=== PATIENT | female | born 1945 | race Caucasian/White ===

== ENCOUNTER → 2022-12-18 | Outpatient (CLI) | payer MEDICARE, MEDICAID, SELFPAY ==
--- NOTE | 2022-12-18 13:29 | CDU_ITS ---
Reason For Study: carotid stenosis, S/P R CEA Rt. Velocities/BP Lt. Velocities/BP Prox CCA 111.3/5.8 cm/sec. Prox CCA 75.3/7.7 cm/sec. Mid CCA 86.1/5.8 cm/sec. Mid CCA 87.6/7.7 cm/sec. Dist CCA 78.4/9.1 cm/sec. Dist CCA 44.3/6.9 cm/sec. Prox ICA 50.7/9.0 cm/sec. Prox ICA 236.6/28.6 cm/sec. Mid ICA 92.4/15.1 cm/sec. Mid ICA 291.5/32.6 cm/sec. Dist ICA 87.8/12.8 cm/sec. Dist ICA 78.6/15.0 cm/sec. Rt. ICA/CCA = 1.1. Lt. ICA/CCA = 3.3. Prox ECA 99.8/5.3 cm/sec. Prox ECA 419.2/10.7 cm/sec. Rt. Vert. 63.0/12.6 cm/sec. Lt. Vert. 77.3/5.8 cm/sec. Right Extracranial There is heterogeneous, irregular atherosclerotic plaque noted in the right common carotid artery. There is intimal thickening but no significant atherosclerotic plaque noted in the right internal carotid artery. There is homogeneous, smooth atherosclerotic plaque noted in the right external carotid artery. Antegrade flow is noted in the right vertebral artery. Left Extracranial There is heterogeneous, irregular atherosclerotic plaque noted in the left common carotid artery. There is heterogeneous, irregular atherosclerotic plaque noted in the left internal carotid artery. There is heterogeneous, irregular atherosclerotic plaque noted in the left external carotid artery. Antegrade flow is noted in the left vertebral artery. Procedure Carotid Duplex [id number]. This is a Carotid Duplex examination using B-mode, color flow and specral Doppler. The exam was diagnostic. Exam performed in department. VL/Carotid Duplex Ultrasound Interpretation Summary Normal right extracranial internal carotid. Severe (>70%) stenosis left extracranial internal carotid. Patent and antegrade vertebrals bilaterally. Ordering Physician: Agustina Hendricks Performed By: Alireza Garcia RVT
== END | disposition home or self-care (01) ==
LOC: CVS 13:29
PROVIDERS: PCP Student in an Organized Health Care Education/Training Program; Referring Provider Physician Assistant; Visit Provider Physician Assistant
DX: I65.23 Occlusion and stenosis of bilateral carotid arteries (principal)
CPT/HCPCS: 93880

== ENCOUNTER 2023-01-09 08:22 | Inpatient (IN) | payer MEDICARE, MEDICAID, SELFPAY ==
[2023-01-09] VITALS (19 sets, daily range): BP systolic 82–143; BP diastolic 42–107; PULSE 62–76; RESP 12–21; TEMP 36.6–36.8; O2SAT 88–100; BMI 26.4; BMI 28.2
[2023-01-09] MEDS: Lactated Ringers 1,000 ML 15 ML IV (09:27)
[2023-01-09] MEDS: 0.9% Normal Saline 1,000 ML 1 ML IV (09:28)
[2023-01-09] MEDS: Vancomycin IV 1,000 MG/200 ML BAG 200 MG IV (09:28)
--- NOTE | 2023-01-09 10:30 | HP.PCM_ITS ---
History and Physical Allergies codeine Allergy (Severe, Verified 12/06/22 14:59) Nauseahydrocodone [From [place]] Allergy (Severe, Verified 12/06/22 14:59) Nauseavalsartan Adverse Reaction (Intermediate, Verified 12/06/22 14:59) vertigoPenicillins Adverse Reaction (Unknown, Verified 12/06/22 14:59) Chest tightnessaspirin Adverse Reaction (Verified 12/06/22 14:59) Bleeding Medications Calcium 600 mg PO BID 11/18/19 [History Confirmed 12/06/22] Vitamin D3 1 tab PO DAILY 11/18/19 [History Confirmed 12/06/22] amlodipine 5 mg tablet 5 mg PO DAILY 11/18/19 [History Confirmed 12/06/22] escitalopram oxalate 20 mg tablet 20 mg PO DAILY 11/18/19 [History Confirmed 12/06/22] omeprazole 20 mg capsule,delayed release 20 mg PO DAILY 11/18/19 [History Confirmed 12/06/22] irbesartan 300 mg-hydrochlorothiazide 12.5 mg tablet 1 ea PO DAILY 03/21/20 [History Confirmed 12/06/22] apixaban 5 mg tablet (Eliquis) 5 mg PO BID 12/06/22 [History Confirmed 12/06/22] atorvastatin 40 mg tablet (Lipitor) 40 mg PO QHS 12/06/22 [History Confirmed 12/06/22] clopidogrel 75 mg tablet 75 mg PO DAILY 12/06/22 [History Confirmed 12/06/22] metoprolol succinate 25 mg tablet,extended release 24 hr 25 mg PO BID 12/06/22 [History Confirmed 12/06/22] ropinirole 0.5 mg tablet 0.5 mg PO BID 12/06/22 [History Confirmed 12/06/22] PFSH Medical History? Acid reflux Anemia Anxiety CKD (chronic kidney disease) Essential tremor Heart murmur Hypertension Hyperthyroiditis Osteoporosis Pain disorder Peripheral vascular disease Thrombocytosis Vitamin D deficiency Surgical History? H/O angioplasty History of tonsillectomy Family History? Father CVA (cerebral vascular accident) Lung cancerMother Heart disease Hypertension Social History? Smoking Status:? Former smoker HPI HPI HPI: VISHNU BERMUDEZ, is a 77 F who presents to the office today for evaluation of carotid artery disease. Patient is accompanied by her . She actually presents today status post right carotid endarterectomy performed at [facility] on 11/09/2022.? She reports the procedure was performed by a Dr. Alicea.? She has not followed up with him postoperatively. On 11/01/2022, patient reports she awoke with right-sided facial drooping, dysarthria, confusion and she was transported to [facility] by squad and subsequently transferred to [facility].? She was determined to have significant carotid artery stenosis felt to be the cause of her stroke and thus carotid endarterectomy was performed once she was stable for surgery.? She states that they also told her the left carotid artery had significant stenosis around 85% and would require surgery within 6 weeks.? She also tells me that postoperatively she was found to have atrial fibrillation. She had no prior history of A-fib. We do not have any records or imaging available for review today. She does not want to continue to follow with vascular surgery at [facility] because the drive is simply too far.? She and her are both minimally ambulatory, she does not drive at all he can only tolerate driving short distances. She has been recovering well from the operation.? She has had minimal swelling at the incision site and minimal surrounding numbness.? She denies any unilateral severe headaches or fluctuations in her blood pressure.? She denies any stroke symptoms since the surgery.? She denies hoarse voice and tongue deviation.? She has been taking Eliquis and Plavix as prescribed following her surgery, stroke, new onset post-op A-fib.? Her stroke symptoms had mostly resolved within 1 to 2 days following her stroke, very minor right-sided facial drooping remains. She reports a history of GI bleeding which is why she was not started on aspirin.? She was taking statin prior to all of this for high cholesterol.? Otherwise, she reports her past medical history significant only for chronic kidney disease. ROS General General: Yes weight change, fatigue and weakness; No appetite, colon cancer or breast cancer HEENT HEENT: No difficulty swallowing, eye injury, eye surgery, swollen glands or hoarseness Endo Endocrine: No thyroid disease, diabetes mellitus, thyroid cancer, Hair loss, heat intolerance or cold intolerance Skin Skin: No rash or changing moles Musc Musculoskeletal: Yes back problems; No arthritis, rheumatoid arthritis, gout or joint pain Cardio Cardiovascular: Yes atrial fibrillation; No murmur, pacemaker, heart disease, high blood pressure, heart attack, heart stent, palpitations, shortness of breat with exertion or chest pain Psych Psychiatric: No depression, anxiety or hearing voices Resp Respiratory: No shortness of breath, No sleep apnea, No cough, No COPD, No asthma, No emphysema and No wheezing Gastro Gastrointestinal: No abdominal pain, No nausea or vomiting, Yes diarrhea, Yes constipation, No blood in stool, Yes acid reflux, No hemorrhoids, No ulcers, No gallbladder problem and No black,tarry stools Rom Hematologic: Yes blood thinners, No blood disorders, No bleeding, No anemia and No blood clots Neuro Neurologic: No system reviewed and no additional complaints, except as documented, No as per HPI, No abnormal gait, No abnormal hearing, No abnormal movements, No abnormal speech, No behavioral changes, No burning sensations, No confusion, No convulsions, No disequilibrium, No dizziness, No localized weakness, No frequent falls, No headache(s), No lack of coordination, No loss of vision, No memory loss, Yes numbness, No other visual disturbances, No radicular pain, No restless legs, No sensory deficit, No syncope, Yes tingling, No tremor(s), Yes weakness and No other Exam Const General: cooperative, healthy appearing, comfortable and no acute distress Orientation: alert, awake and oriented x3 [facility] Head: normal to inspection, normocephalic and atraumatic Ears: hearing grossly normal bilaterally and external ears normal Nose: external nose normal Eyes General: appearance normal, both eyes and all related structures EOM: EOM intact bilaterally Neck Neck: trachea midline Other: Right CEA incision with surgical glue intact.? Steri-Strips in place but peeling off.? Minimal swelling.? No ecchymosis, drainage, bleeding, erythema. Resp Effort & Inspection: normal respiratory effort, able to speak in complete sentences, symmetric chest movement, no audible wheezes, not labored, no respiratory distress, no stridor and no use of accessory muscles Auscultation: clear to auscultation bilaterally Cardio Rate: regular rate Rhythm: abnormal rhythm irregularly irregular Heart Sounds: murmur Bruits: carotid bruit on the left Pulses: brachial pulses present and radial pulses present Skin General: no rashes or lesions noted Wounds: no wounds Neuro General: patient alert, patient awake, patient oriented x3, moves all extremities, no focal motor deficits and CN's II-XI intact bilaterally Cognition: normal cognition Speech: speech normal Other: Slight right-sided drooping of the mouth. Psych Appearance: grossly normal Mental Status: mental status grossly normal Mood: congruent mood Affect: normal affect Speech and Movement: speech and movement normal Attitude: cooperative Thought Process: normal Thought Content: normal Judgment: judgment good Coding Level of Care Code Off vis,new,level 3 Diagnoses S/P carotid endarterectomy? Z98.890 Carotid stenosis with cerebral infarction less than 8 weeks ago? Assessment and Plan Assessment and Plan -left carotid stenosis -left CEA
[2023-01-09] MEDS: Heparin Injection (Vial) 5,000 UNIT/ML VIAL 5000 UNIT (10:51)
--- NOTE | 2023-01-09 11:15 | PLAQ_PTH ---
PATIENT: VISHNU BERMUDEZ LOC: ICU U#:[id number] AGE/SX: 77/F ROOM: [place] [address] RE01/09/[address]: Dr. Xavier Childers MD : 1945 BED: 1 DIS: 01/10/2023 SPEC #: [id number] RECD: 01/09/23 14:10 STATUS: THERON RELorenzo #: [id number] MARGRET: 01/09/23 11:[address]: Xavier Childers DEPT: SURGICAL PATHOLOGY RECD BY: Kamari Mckeon ENTERED: 01/10/23 07:47 SP TYPE: PLAQUE OTHR DR: Dr. Charlie Ruiz, Tissues: PLAQUE Procedures: Decalcification bone/plaque Surgery Specimen Level III HEADER OPERATION: Carotid endarterectomy PRE-OP DIAGNOSIS: Left carotid stenosis TISSUE SUBMITTED: Left carotid plaque MICROSCOPIC DIAGNOSIS Left carotid plaque, endarterectomy: Atherosclerotic tissue with focal calcifications (plaque). SJ:marisa 01/14/2023 GROSS DESCRIPTION Received in fixative is one container labeled with the patient's name and designated left carotid plaque. The specimen consists of an elongated fragment of yellow plaque-like material measuring 3.0 cm in length and 1.0 cm in diameter. The specimen cuts with a gritty sensation. The specimen is sectioned and totally submitted in one cassette after decalcification. / AM:marisa 01/10/2023 TC:5 CPT: 91915, 68175
[2023-01-09] MEDS: Bupivacaine 0.25% 30 ML Vial (13:25)
--- NOTE | 2023-01-09 13:28 | PCM.OPRPT ---
Report of Operation Date of Procedure: 01/09/23 Pre-Operative Diagnosis: left carotid stenosis Post-Operative Diagnosis: same Surgery/Procedure Performed:: left carotid endarterectomy Surgeon: Xavier Childers Type of Anesthesia: General Drains: 19 Fr LV Estimated Blood Loss (mL): 30 Description of Procedure: HPI: Patient is a 77-year-old female with symptomatic carotid artery stenosis bilaterally. She previously underwent a right carotid endarterectomy and she presents now for treatment of her left carotid artery stenosis. Description of procedure: Upon obtaining informed consent and verification correct patient procedure and site patient was taken to the operating where she was placed under general anesthesia. She was then positioned prepped and draped in usual sterile fashion a timeout was performed. Oblique incision was made along the anterior border sternocleidomastoid Bovie electrocautery was dissect down through subcutaneous tissue to the level of the platysma. The platysma was divided and self-retaining tractors put in position. Further dissection carried on the interval sternocleidomastoid was then retracted laterally exposing the carotid sheath. Sharp dissection was then used to dissect free the anterior border the internal jugular vein and the facial vein was ligated and divided allowing posterior lateral traction of the vein and exposing the proximal common carotid artery. Sharp dissection used to dissect free the proximal common carotid artery in the right and used to place a vessel loop with care taken to identify protect the vagus nerve. We then dissected free distally onto the internal carotid artery beyond the area of visible plaque and a right angle used to place a vessel loop with care taken to identify protect the hypoglossal and vagus nerves. Patient was in heparinized allowed to circulate for 3 minutes during which time sharp dissection used to dissect through the external carotid artery and a right angle used to place a vessel loop. ACT was performed and sequential heparin redosing guided by ACT results. The carotid vessels then occluded first the internal followed by the common and external and a longitudinal arteriotomy created with 11 blade on the distal common carotid artery and extended into the internal carotid artery with Fontana scissors. A 10 Dominican [place] shunt was then placed first distally in the internal carotid artery allowed to backbleed before placing in the common carotid artery. The shunt was interrogated Doppler from repeat low resistance signal. We then performed endarterectomy with a freer elevator with eversion endarterectomy of the external carotid artery and satisfactory endpoint onto the distal internal carotid artery beyond the plaque. The lumen was then flushed with heparinized saline to clear of any debris in the distal endpoint tacked with 7-0 Prolene interrupted sutures. A bovine pericardial fashion and brought in the field and secured in position using 6-0 Prolene in a running fashion. Prior to completing the suture line the shunt was removed and the vessels backbled. After completing the suture line the internal carotid artery allowed to backbleed and the bifurcation then reoccluded as origin. Clamps were then released from the external and common carotid artery allowing 10 heartbeats of antegrade flow into the external before reestablishing antegrade flow into the internal carotid artery. After clamps removed satisfactory hemostasis was noted and the vessels were interrogated with Doppler. The internal carotid arteries patent with low resistance signal in the external carotid artery was patent with appropriate signal. The patient was then reversed with protamine and the incision inspected for hemostasis. After satisfactory stasis was noted a 19 Dominican channel LV was placed via separate stab incision and the incision was closed with 2-0 Vicryl, 3-0 Vicryl, 4 Monocryl and Dermabond for the skin. At the inclusion the case patient was awakened anesthesia moving all extremities at which point she was transferred to the intensive care unit for close hemodynamic and neurologic monitoring.
[2023-01-09] MEDS: Nitro/D5w 25MG/250ML Bottle 25 MG (13:56)
[2023-01-09 15:35] LABS: ACT Activated Clotting Time 167 sec (74-137)
[2023-01-09 15:36] LABS: ACT Activated Clotting Time 227 sec (74-137)
[2023-01-09 15:37] LABS: ACT Activated Clotting Time 221 sec (74-137)
[2023-01-09] MEDS: 0.45% Normal Saline 1,000 ML 75 ML IV (16:07)
[2023-01-09] MEDS: Acetaminophen 500 MG Tablet 1000 MG PO ×2 (16:08→21:16)
[2023-01-09] MEDS: Pantoprazole Sodium 20 MG Tablet PO (16:08)
[2023-01-09] MEDS: Labetalol (Prefilled) 20 MG/4 ML 10 MG IV (16:38)
[2023-01-09] MEDS: levETIRAcetam 500 MG Tablet PO (21:17)
[2023-01-09] MEDS: Pramipexole Di-HCl 0.25 MG Tablet PO (21:17)
[2023-01-09] MEDS: Atorvastatin Calcium 40 MG Tablet PO (21:17)
[2023-01-10] VITALS (16 sets, daily range): BP systolic 87–132; BP diastolic 44–77; PULSE 57–78; RESP 12–19; TEMP 36.5–37; O2SAT 91–99; BMI 27.3
--- NOTE | 2023-01-10 00:40 | NURSING ---
0025: Pt bladder scanned for >1144ml after inability to void on BSC; explained straight cath procedure and pt agreed; straight cath per facility protocol for 1275ml, pt elijah well and stated I feel so much better.
[2023-01-10 04:24] LABS: Absolute Lymphocyte Count 1.65 X10^3/uL (0.83-4.51); Absolute Neutrophil Count 10.4 X10^3/uL (2.0-7.7); Basophil# 0.11 X10^3/uL; Basophil% 0.8 % (0-1); Eosinophils% 1.5 % (0-5); Hematocrit 31.8 % (37-47); Hemoglobin 9.7 g/dL (12.0-15.0); Lymphocyte # 1.65 X10^3/ul (0.83-4.51); Lymphocyte % 12.5 % (19-41); Mean Corp Hgb Conc 30.5 g/dL (32-36); Mean Corpuscular Hgb 26.6 pg (27.0-32.0); Mean Corpuscular Volume 87.4 fL (81-99); Mean Platelet Vol. 10.4 fl (6.2-12.0); Monocyte# 0.71 X10^3/uL; Monocyte% 5.4 % (0-10); NRBC Flagged by Analyzer 0 % (0-5); Neutrophil # 10.38 X10^3/uL (2.7-7.7); Neutrophil % 78.9 % (47-70); POSITIVE COUNT YES; Platelet Count 785 K/mm3 (150-450); RBC Distribution Width CV 19.3 % (11.6-14.6); Red Blood Count 3.64 M/mm3 (4.2-5.4); White Blood Count 13.2 K/mm3 (4.4-11.0)
[2023-01-10 04:26] LABS: Differential Indicated SCAN CRITERIA MET
[2023-01-10 04:37] LABS: Anisocytosis 2+; Platelet Estimate MKD INC (ADEQ)
[2023-01-10] MEDS: 0.9% Saline Lock 10 ML Syringe IV (05:36)
[2023-01-10] MEDS: Acetaminophen 500 MG Tablet 1000 MG PO ×2 (05:36→14:53)
[2023-01-10] MEDS: 0.45% Normal Saline 1,000 ML 75 ML IV (05:37)
[2023-01-10] MEDS: Clopidogrel Bisulfate 75 MG Tablet PO (09:41)
[2023-01-10] MEDS: Metoprolol(XL)Succ 25 MG Tablet PO (09:41)
[2023-01-10] MEDS: Pramipexole Di-HCl 0.25 MG Tablet PO (09:41)
[2023-01-10] MEDS: Escitalopram Oxalate 20 MG Tablet PO (09:42)
[2023-01-10] MEDS: oxyCODONE 5 MG Tablet PO (09:42)
[2023-01-10] MEDS: levETIRAcetam 500 MG Tablet PO (09:42)
[2023-01-10] MEDS: Enoxaparin 40 MG/0.4 ML Syringe SC (09:42)
--- NOTE | 2023-01-10 12:32 | PCM.PN.SRG ---
Subjective Subjective Doing well overnight, pain controlled, no numbness/weakness/vision loss/speech difficulty. Up to chair with minimal assist, tolerating diet. Objective Data Objective Data A&O x 3, NAD RRR Resp non labored CN intact Inc C/D/I Vital Signs: Vital Signs Temp Pulse Resp BP Pulse Ox O2 Del Method O2 Flow Rate 97.7 F L 72 19 H 118/54 L 92 Room Air 2 01/10/23 08:00 01/10/23 11:00 01/10/23 11:00 01/10/23 11:00 01/10/23 11:00 01/10/23 11:00 01/10/23 08:00 Oxygen Flow Rate (L/min) 2 Oxygen Delivery Method Room Air Weight: 160 lb 4.417 oz Body Mass Index (BMI) 27.3 Intake & Output: Intake and Output for Last 24 Hours 01/08/23 01/09/23 01/10/23 23:59 23:59 23:59 Intake Total 1167.25 / 1167.25 726.25 / 726.25 Output Total 1285 / 1285 Balance 1157.25 / 1157.25 -558.75 / -558.75 Lab / Micro Data Result Diagrams: 01/10/23 04:15 Labs: Laboratory Results - last 24 hr 01/09/23 11:31: Activated Clotting Time 167 H 01/09/23 11:59: Activated Clotting Time 227 H 01/09/23 12:38: Activated Clotting Time 221 H 01/10/23 04:15: WBC 13.2 H, RBC 3.64 L, Hgb 9.7 L, Hct 31.8 L, MCV 87.4, MCH 26.6 L, MCHC 30.5 L, RDW Std Deviation 60.0 H, RDW Coeff of Bharathi 19.3 H, Plt Count 785 H*, MPV 10.4, Immature Gran % (Auto) 0.900, Neut % (Auto) 78.9 H, Lymph % (Auto) 12.5 L, Mineral % (Auto) 5.4, Eos % (Auto) 1.5, Baso % (Auto) 0.8, Absolute Neuts (auto) 10.4 H, Absolute Lymphs (auto) 1.65, Nucleated RBC % 0, Diff Path Review May ramon, Platelet Estimate MKD INC, Anisocytosis 2+ Assessment & Plan Assessment/Plan (1) Carotid stenosis with cerebral infarction less than 8 weeks ago: PLAN: -neuro intact -ambulated in room without difficulty -will walk with nursing in DAYDAY vigil; was at home prior to surgery without concerns for daily functional status -if doing well ambulating DC this evening; if PT recommends facility based discharge then will arrange
--- NOTE | 2023-01-10 13:50 | CASEMGMT ---
RN?CM?STRAIGHTENER AND ALIGNER?CM?to room to meet with patient for initial transition planning/care coordination?assessment.?RN?CM?introduced self and role at [facility].? Pt voices understanding and consents to?assessment?at this time.? Pt sitting up in recliner chair in no distress at this time.? Pt is A/O at this time and answers all questions appropriately.?? Care providers, pharmacy, and demographics verified/updated at this time. PCP: Dr Ruiz Specialists: Dr Pedraza Preferred Pharmacy:[facility] Insurance: [facility] Prescription Benefit:?Yes Living Will/HPOA:?Pt does not currently have LW/HCPOA and declines info at this time.? LNOK: dtr and son--both live in [place]. Alireza/Lorne Living Arrangements: Lives w/Alireza in one-story apt w/no steps to enter. Pt states she is indep w/ADL's and IADL's and manages her own medications. Transportation:?Alireza DME: States has the following DME:?shower chair, RTS, grab bars, medical alert system. Pt states needs a walker. Verbally reviewed local DME companies and made aware [employer] is affiliated w/[facility]. Pt chooses [employer]. ?Pt states no need for further DME at this time.? HHC/SNF: Has been to [place] [facility] in the past and has had HHC in the past. Pt would like HHC again. A list of HHC providers including quality and resource use data and consistent with the patient?s preferred geographic region, medical needs, and insurance network were provided from the [facility] Guide. Pt states she would like [facility], as Alireza is currently getting HHC w/them. Pt wishes to return home and states has no concerns with going home at time of discharge.?CM?to follow for any further discharge planning/needs.? Pt voices no further concerns/needs at this time.? Advised pt to ask for?CM?if any further questions/concerns/needs arise.? Voices understanding. PLAN:??Home w/WW and HHC. Breann WHEELERN?RN?CM
--- NOTE | 2023-01-10 14:01 | CASEMGMT ---
Discharge Planning Patient Choice list for created and given to RN CM. Katia Novak
--- NOTE | 2023-01-10 14:18 | CASEMGMT ---
Discharge Planning HH referral sent to [facility] via [facility]. Katia Novak
[2023-01-10] MEDS: Pantoprazole Sodium 20 MG Tablet PO (14:54)
--- NOTE | 2023-01-10 15:24 | CASEMGMT ---
Addendum entered by Cheryl Romero 01/10/23 16:25: Referral for WW was sent to [facility] via [facility]. Addendum entered by Cheryl Romero 01/10/23 16:08: Pt made aware [facility] able to accept her. [facility] [place] walker to pt's room. Original Note: HENRIETTA RODRIGUEZ note: HENRIETTA RODRIGUEZ spoke w/Rafael @ [facility]. They are able to accept pt w/anticipated SOC tomorrow.
--- NOTE | 2023-01-10 16:25 | PCM.DC.SUM ---
Providers Date of Admission: 01/09/23 Date of Discharge: 01/10/23 Primary Care Physician: Dr. Charlie Ruiz DO Reason For Visit: LT CAROTID ENDARTERECTOMY Diagnosis Discharge Diagnosis (1) Carotid stenosis with cerebral infarction less than 8 weeks ago: Status: Acute Medications at Discharge Home Medications escitalopram oxalate 20 mg tablet 20 mg PO DAILY DEPRESSION 11/18/19 omeprazole 20 mg capsule,delayed release 20 mg PO 1600 GERD 11/18/19 apixaban 5 mg tablet (Eliquis) 5 mg PO BID BLOOD THINNER 12/06/22 atorvastatin 40 mg tablet (Lipitor) 40 mg PO DAILY CHOLESTEROL 12/06/22 clopidogrel 75 mg tablet 75 mg PO DAILY BLOOD THINNER 12/06/22 metoprolol succinate 25 mg tablet,extended release 24 hr 25 mg PO DAILY BP 12/06/22 ropinirole 0.5 mg tablet 0.5 mg PO BID RLS 12/06/22 levetiracetam 500 mg tablet 500 mg PO BID MOOD 01/07/23 oxycodone 5 mg tablet 5 mg PO Q8H PRN PRN Pain Score 4-10 3 days #9 tabs 01/10/23 Hospital Course Procedures - (Left carotid endarterectomy) Summary of Care Provided Hospital Course: Patient underwent L carotid endarterectomy on 01/09/2023. The surgery was without complication and she tolerated it well. The L skin incision site was closed with glue. A LV drain was placed at the conclusion of surgery to reduce risk of hematoma. On POD #1 output from the drain was diminishing appropriately and it was removed without issue. After procedure, patient was routinely admitted to ICU for hemodynamic and neurologic monitoring. She has remained hemodynamically stable, has not required PRNs today. She has remained neurologically stable without sign/symptom of stroke or reperfusion syndrome. She initially had some difficulty voiding but was able to void today. She has tolerated progression to full diet. Her pain is well controlled. At the end of October, patient had been hospitalized with stroke at [place] and subsequently underwent R CEA. Following all of this, she has felt a bit weaker. PT/OT evaluated her during her stay and felt she was appropriate for discharge home with a walker and HHC. The patient was agreeable to this and felt comfortable discharging to her home where she also lives with her . Patient is medically stable for discharge, HHC has been arranged, and she has close outpatient follow-up in place. Physical Exam Const oriented x3 and no apparent distress Resp normal respiratory effort Cardio regular rate and regular rhythm Extremity no clubbing, cyanosis or edema Skin Skin Narrative: Left neck incision site with surgical glue intact, skin edges well approximated, no significant swelling/ecchymosis/redness/drainage. Small bandage overlying where the drain was removed. Weight / BMI Weight Weight: 160 lb 4.417 oz Body Mass Index (BMI) 27.3 ABG / Lab / Microbiology Data Result Diagrams: 01/10/23 04:15 Laboratory: Laboratory Results - last 24 hr 01/10/23 04:15: WBC 13.2 H, RBC 3.64 L, Hgb 9.7 L, Hct 31.8 L, MCV 87.4, MCH 26.6 L, MCHC 30.5 L, RDW Std Deviation 60.0 H, RDW Coeff of Bharathi 19.3 H, Plt Count 785 H*, MPV 10.4, Immature Gran % (Auto) 0.900, Neut % (Auto) 78.9 H, Lymph % (Auto) 12.5 L, Caroline % (Auto) 5.4, Eos % (Auto) 1.5, Baso % (Auto) 0.8, Absolute Neuts (auto) 10.4 H, Absolute Lymphs (auto) 1.65, Nucleated RBC % 0, Diff Path Review May foll, Platelet Estimate MKD INC, Anisocytosis 2+ D/C Instructions Discharge Diet: No restrictions May shower in (days): 1 Weight Bearing Status: Weight bearing as tolerated Lifting Restricted to (Lbs): 20 Lifting Restrictions: Do not lift greater than 20 pounds for 3 weeks. Call your doctor if your incision/area has: Sudden Increased Bleeding, Increased Pain/ Swelling and Foul Smelling Discharge Call your doctor if you observe: Fever of 101 or Higher and Uncontrolled pain Remove Dressing in: 1 day Additional Dressing/Incision Instructions: You may remove the small dressing on your neck in 1 day. This is where the surgical drain was located. After removing the dressing, you may leave it open or cover with a new band-aid to your comfort. The incision site is closed with surgical glue which will protect it so there is no need to cover it. The surgical glue will peel off on its own over the next several weeks. Avoid picking at it over the next 1-2 weeks. Additional Instructions: You may shower tomorrow. It is okay for water and soap to rinse over the incision site. Just gently pat dry after showering. Do not submerge the incision site in water for at least 3 weeks. Do not lift greater than 20 pounds for 3 weeks. I have sent a prescription pain medication (oxycodone 5 mg) to your pharmacy. Do not take any other prescription pain medications at the same time. Do not drive while you are taking this medication. Take this medication only as needed. Continue to take your Eliquis and Plavix as directed. Contact our office with any questions or concerns. Follow-up in the vascular surgery office as scheduled on 01/24/2023. Please Follow Up With: Xavier Childers MD When: 01/24/2023 Meaningful Use Info Meaningful Use Diagnoses (Choose all that apply): None applicable Discharge Plan Admission Admit Date/Time: 01/09/23 08:22 Primary Reason for Your Visit: Left carotid endarterectomy Attending Provider: Xavier Childers Primary Care Provider: Charlie Ruiz Discharge Orders/Prescriptions Prescriptions: New oxycodone 5 mg Tablet 5 mg PO Q8H PRN PRN (Reason: Pain Score 4-10) 3 Days Qty: 9 0RF Continued atorvastatin [Lipitor] 40 mg tablet 40 mg PO DAILY metoprolol succinate 25 mg tablet extended release 24 hr 25 mg PO DAILY clopidogrel 75 mg tablet 75 mg PO DAILY ropinirole 0.5 mg tablet 0.5 mg PO BID Eliquis 5 mg tablet 5 mg PO BID escitalopram oxalate 20 MG tablet 20 mg PO DAILY omeprazole 20 MG capsule 20 mg PO 1600 levetiracetam 500 mg Tablet 500 mg PO BID Referrals / Follow Up: Charlie Ruiz DO [Primary Care Provider] - Disposition Disposition (needs filled in before D/C Order can be placed): Home Health Service
[2023-01-11 10:04] LABS: Pathologist Review Reviewed
== END 2023-01-10 17:20 | disposition home health service (06) | DRG 39 ==
LOC: ACINP 08:25 → ICU 14:17
PROVIDERS: Admitting Provider Surgery Trauma Surgery; Referring Provider Surgery Trauma Surgery; Visit Provider Surgery Trauma Surgery
PROC: 03CL0ZZ Extirpation of Matter from Left Internal Carotid Artery, Open Approach (ICD-10-PCS; CPT 35301; principal; 2023-01-09 10:55)
DX: I65.22 Occlusion and stenosis of left carotid artery (principal); E78.00 Pure hypercholesterolemia, unspecified; I48.91 Unspecified atrial fibrillation; I73.9 Peripheral vascular disease, unspecified; N18.9 Chronic kidney disease, unspecified; Z87.891 Personal history of nicotine dependence; Z82.3 Family history of stroke
CPT/HCPCS: 85025; 85347; 86850; 86900; 86901; 88304; 88311; 94668; 97162; 97166; 97802; 99252; A4648; J7030; J7040; J7120; A4216; G0463; J2405

== ENCOUNTER 2023-05-08 11:15 | Outpatient (RCR) | payer MEDICARE, MEDICAID, SELFPAY ==
[2023-05-01 08:48] VITALS: BP 144/45; PULSE 59; RESP 16; TEMP 36.9; BMI 24.9
--- NOTE | 2023-05-01 12:13 | HP.PCM_ITS ---
History of Present Illness Date of Service: 05/01/23 Chief Complaint: Follow-up on a right abdominal wound since February 02, 2023 History of Wound: Patient had a massive stroke bilateral carotids were 100% occluded. Patient was rushed to the hospital and then apparently they were giving her Lovenox and her abdomen. And became necrotic and infected after she went home. She is try to get help but no one seems to know what to do with it. Finally she was referred to the wound center [facility] Medical History (Reviewed 05/01/23 @ 12:14 by Jesica Adam [employer]STRUCTOR, [employer]OUND [employer]CHO[employer] INSTRUCTOR-C) Ambulates with cane Anemia Anxiety Anxiety Atrial fibrillation Back pain Cardiology follow-up encounter CVA (cerebral vascular accident) Essential hypertension Essential tremor Forgetfulness Former smoker Gastric reflux GERD (gastroesophageal reflux disease) Heart murmur History of echocardiogram History of GI bleed Hyperlipidemia Hyperthyroiditis Injury of head and neck JAK2 [id number] mutation Leg cramps Loss of hearing Low iron Non-rheumatic mitral regurgitation Osteoporosis Pain disorder Parkinson's disease Paroxysmal atrial fibrillation Peripheral vascular disease Restless legs Seizures Syncope Thrombocytosis Vitamin D deficiency Wears dentures Wears glasses Home Medications escitalopram oxalate 20 mg tablet 20 mg PO DAILY DEPRESSION 11/18/19 [History Last Taken Unknown] omeprazole 20 mg capsule,delayed release 20 mg PO 1600 GERD 11/18/19 [History Last Taken 01/09/23] apixaban 5 mg tablet (Eliquis) 5 mg PO BID BLOOD THINNER 12/06/22 [History Last Taken 01/08/23] atorvastatin 40 mg tablet (Lipitor) 40 mg PO DAILY CHOLESTEROL 12/06/22 [History Last Taken Unknown] metoprolol succinate 25 mg tablet,extended release 24 hr 25 mg PO DAILY BP 12/06/22 [History Last Taken 01/09/23] ropinirole 0.5 mg tablet 0.5 mg PO BID RLS 12/06/22 [History Last Taken Unknown] amlodipine 2.5 mg tablet 2.5 mg PO DAILY 05/01/23 [History Last Taken Unknown] cholecalciferol (vitamin D3) 50 mcg (2,000 unit) capsule 50 mcg PO DAILY 05/01/23 [History Last Taken Unknown] denosumab 60 mg/mL subcutaneous syringe mg subcut .[id number] 05/01/23 [History Last Taken Unknown] hydrochlorothiazide 12.5 mg capsule 12.5 mg PO DAILY 05/01/23 [History Last Taken Unknown] ondansetron 4 mg disintegrating tablet 4 mg PO Q6H 05/01/23 [History Last Taken Unknown] zonisamide 100 mg capsule (Zonegran) 200 mg PO DAILY 05/01/23 [History Last Taken Unknown] Allergy/AdvReac Type Severity Reaction Status Date / Time codeine Allergy Severe Nausea Verified 05/01/23 09:05 hydrocodone [From [place]] Allergy Severe Nausea Verified 05/01/23 09:05 Penicillins Allergy Unknown Chest Verified 05/01/23 09:05 tightness venlafaxine Allergy Unknown Diarrhea, Verified 05/01/23 09:05 nausea valsartan AdvReac Intermediate vertigo Verified 05/01/23 09:05 aspirin AdvReac Bleeding Verified 05/01/23 09:05 Family History Father CVA (cerebral vascular accident) Lung cancer Mother Heart disease Hypertension Surgical History H/O angioplasty History of angioplasty of peripheral vessel History of esophagogastroduodenoscopy (EGD) History of tonsillectomy Hx of colonoscopy Hx of left cataract extraction Hx of right cataract extraction Hx of tonsillectomy S/P carotid endarterectomy (~11/2022) Social History Smoking Status: Former smoker how long ago did patient quit smokin years ago alcohol intake: current alcohol intake frequency: holidays/special occasions only substance use type: does not use caffeine: Yes Type: coffee Number of servings: 4 ROS Constitutional Constitutional: Reports systems reviewed and no addt'l complaints, except as documented Cardiovascular Cardiovascular: Reports systems reviewed and no addt'l complaints, except as documented Respiratory/Chest Respiratory/Chest: Reports systems reviewed and no addt'l complaints, except as documented Gastrointestinal Gastrointestinal: Denies abdominal pain, constipation, diarrhea, dyspepsia, hematemesis, hematochezia, melena, nausea or vomiting Integumentary Integumentary: Reports systems reviewed and no addt'l complaints, except as documented, wounds and other Details: Open wound right abdomen with necrotic top Neurologic Neurologic: Reports systems reviewed and no addt'l complaints, except as documented Psychiatric Psychiatric: Reports systems reviewed and no addt'l complaints, except as documented Hematologic/Lymphatic Hematologic/Lymphatic: Reports easy bleeding Allergic/Immunologic Allergic/Immunologic: Reports systems reviewed and no addt'l complaints, except as documented Vital Signs Vital Signs Vital Signs: 05/01/23 08:48 Temperature 98.4 F Temperature Source Temporal Pulse Rate 59 L Respiratory Rate 16 Blood Pressure 144/45 H Blood Pressure Mean 78 Blood Pressure Source Monitor Blood Pressure Position Sitting Blood Pressure Location Right Arm Oxygen Delivery Method Room Air Weight Weight: 145 lb Body Mass Index (BMI) 24.9 Physical Exam Const oriented x3 General Appearance: cooperative Exam Limitations: no limitations HEENT normocephalic Head and Scalp: normal to inspection Face and Sinus: normal facial exam External Ear: external ears normal Eyes General Eye: normal appearance of both eyes Neck full ROM General: normal visual inspection Resp normal respiratory effort Effort and Inspection: able to speak in complete sentences Auscultation: clear to auscultation bilaterally Cardio regular rate and regular rhythm Palpation: normal PMI Rate: regular rate Rhythm: regular rhythm GI Negative for normal to inspection, nondistended, normoactive bowel sounds GI Narrative: Open wound right abdomen Inspection: other Other Details: Open wound on the right abdominal wall from injections into the abdomen around her umbilicus positive necrotic And slough in the base Auscultation: normoactive bowel sounds Palpation: soft and no hepatosplenomegaly Skin no rashes or lesions noted Wound Narrative: Open wound right abdomen from it looks like when she received Lovenox injections into her abdomen for her stroke. Psych Appearance: grossly normal Speech: normal speech Thought Content: normal thought content Judgement: judgement good Debridement Note Debridement Note Wound debrided: Abdominal wound from injection site Type of Debridement: Excisional debridement Anesthesia Used: 5% Lidocaine Gel Depth: Down to and including healthy tissue and in the subcutaneous layer Percentage of wound debrided: 100 Instrument Used: 5mm curette Tissue Removed: Necrotic tissue devitalized tissue and slough Severity: Fat Layer Exposed Amount of bleeding with debridement: Mild Bleeding Controlled with: Compression and gauze Patient tolerated procedure: Patient tolerated procedure well Post-Debridement Measurements and Additional Note: Post-Debridement Measurements/Treatment WC - Nurse 1 - General Ulcer Assessment Start: 05/01/23 08:44 Freq: Status: Active Protocol: WCVILMA Activity Type Activity Date Activity User E-sign Co-sign Detail Recorded Client Recorded Date Recorded By Document 05/01/23 08:48 [facility] Double [employer] 05/01/23 08:59 [facility] 05/01/23 08:48 - Today's Visit Information Type of service Initial Visit Arrival Mode Ambulatory,Cane Transfer Assistance None Accompanied by FIANCE Patient Identification Verified (Name & Yes ) Patient Requires Transmission-Based No Precautions Height and Weight Height 5 ft 4 in Weight 145 lb Weight in Pounds 145.0 lbs Body Mass Index (BMI) 24.9 BMI Classification Normal BSA - Shira 1.71 Vital Signs Temperature (97.8 F-99.1 F) 98.4 F Temperature Source Temporal Pulse Rate (60-100) 59 L Pulse Location Monitor Respiratory Rate (12-18) 16 Respiratory rate source Observation Oxygen Delivery Method Room Air Blood Pressure (90/60-120/80) 144/45 H Blood Pressure Mean 78 Source Monitor Position Sitting Blood Pressure Location Right Arm History Since Last Visit- (Skip if this is Patient's initial visit) Left Footwear Regular Shoe Right Footwear Regular Shoe Pain Scale: 0-10 Numeric Is Patient Pain Free? Yes Communication Assessment Preferred language Georgian Dustless Operator Required No Able to Read Yes Able to Write Yes Communication Tools None Right Hearing Abillity Normal Left Hearing Abillity Normal Visual Assistive Devices Glasses Teaching Assessment Preferences Verbal,Written, Audio/Visual, Demonstration Barriers to Learning None Readiness To Learn Excellent Willingness to Engage in Self Management High Activies Readiness to Engage in Self Management High Activities Anxiety Level Calm Cooperation Cooperative Perception Coherent Interest in Health Problem Asks Questions Education Importance Acknowledges Need Does Patient Smoke tobacco or other No substances Smoking Status Former smoker - Nurse 1 - General Ulcer Measurement Start: 05/01/23 08:44 Freq: Status: Active Protocol: Activity Type Activity Date Activity User E-sign Co-sign Detail Recorded Client Recorded Date Recorded By Document 05/01/23 08:48 [facility] [employer] 05/01/23 08:59 [facility] 05/01/23 08:48 Wound Center Nurse 1 #1- R ABDOMEN -Combined with other wound No -Current Size (cm) - Length 0.8 -Current Size (cm) - Width 0.8 -Current Size (cm) - Depth 0.2 -Total Square Cm 0.64 -Date of Last Picture (Recall this 05/01/23 field) -Photo Taken Yes -Epithelialization None Present -Tunneling No -Undermining/Tunneling No -Circular Undermining No -Exudate Amt Medium -Exudate Type Serosanguineous -Wound Margin Distinct, Outline Attached -Granulation Amt None Present (0 %) -Slough/Fibrin Yes -Necrosis Amt Large (67-100%) -Necrotic Tissue Type Eschar -Texture (Marcia-wound Skin Appearance) Assessed, Scarring -Moisture (Marcia-wound Skin Appearance) Assessed -Color (Marcia-wound Skin Appearance) Assessed, Erythema -Temperature (Marcia-wound Skin No Abnormality Appearance) (Pt Warm) -Tenderness on Palpation (Marcia-wound No Skin Appearance) -Ulcer Cleansing Rinsed/ Irrigated with Saline -Foul Odor after Cleansing No -Anesthetic Used 5% Lidocaine Gel WC - Nurse 2 - General Ulcer CM Notes Start: 05/01/23 08:44 Freq: Status: Active Protocol: Activity Type Activity Date Activity User E-sign Co-sign Detail Recorded Client Recorded Date Recorded By Document 05/01/23 09:22 MW [id number] 05/01/23 09:31 MW 05/01/23 09:22 Wound Center Nurse 2 -Time 09:23 -Correct Patient Yes -Correct Side, Site, Position Yes -Correct Procedure Yes -Procedure Performed Yes -Type of Procedure Debridement -Clinical Debridement Subcutaneous -Tissue Removed Subcutaneous -Post Debridement (cm) - Length 1.5 -Post Debridement (cm) - Width 2.6 -Post Debridement (cm) - Depth 0.3 -Total Square (Post) (cm) 3.90 -Area of Debridement (cm) - Length 1.5 -Area of Debridement (cm) - Width 2.6 -Total Square (Area) (cm) 3.90 -Tunneling No -Undermining/Tunneling No -Circular Undermining No -Wound/Ulcer Outcome Not Healed -Ulcer Cleansing Rinsed/ Irrigated with Saline -Foul Odor after Cleansing No -Bioengineered Tissue No -Bleeding Controlled with Pressure -Treatment Response Procedure Tolerated Well -Offloading No -Debridement - Subq, 1st 20sq cm Yes Pain Scale: 0-10 Numeric Is Patient Pain Free? Yes WC - Nurse 3 - General Ulcer D/C NN Start: 05/01/23 08:44 Freq: Status: Active Protocol: Activity Type Activity Date Activity User E-sign Co-sign Detail Recorded Client Recorded Date Recorded By Document 05/01/23 09:51 RB Desktop 05/01/23 09:53 RB 05/01/23 09:51 Wound Care Center Nurse 3 #1- R ABDOMEN -Ulcer Cleansing Rinsed/ Irrigated with Saline -Primary Dressing Applied Fibracol Plus 4x4,Mepilex Border -Other Dressing bactroban -Fibracol Plus 4x4 1 -Mepilex Border 1 Treatment Response Procedure Tolerated Well Pain Scale: 0-10 Numeric Is Patient Pain Free? Yes Teaching: Wound Center Dressing Your Wound -Person Taught Patient,Family -Teaching Method Discussion, Demonstration -Response to teaching Verbalize understanding WC - Visit Discharge Discharge Condition Stable Ambulatory Status Ambulatory,Cane Transportation Private Auto Medication Reconcilliation completed & No provided to patient/care provider Clinical Summary of Care Provided Yes Assessment/Plan Assessment/Plan (1) CVA (cerebral vascular accident): CODE(S): I63.9 - Cerebral infarction, unspecified QUALIFIERS: CVA mechanism: occlusion Precerebral and cerebral artery: carotid artery Laterality of affected vessel: bilateral Qualified Code(s): I63.233 - Cerebral infarction due to unspecified occlusion or stenosis of bilateral carotid arteries (2) Chronic abdominal wound infection: CODE(S): S31.109A - Unspecified open wound of abdominal wall, unspecified quadrant without penetration into peritoneal cavity, initial encounter; L08.9 - Local infection of the skin and subcutaneous tissue, unspecified QUALIFIERS: Encounter type: initial encounter Qualified Code(s): S31.109A - Unspecified open wound of abdominal wall, unspecified quadrant without penetration into peritoneal cavity, initial encounter; L08.9 - Local infection of the skin and subcutaneous tissue, unspecified PLAN: Wash abdomen with antibacterial soap such as Dial apply Bactroban nickel thickness to base then Fibracol Adaptic and gauze dressing over top daily We will have home health care that she already has start the dressing changes also Follow-up in 1 week Cultures obtained we will check since it is old since January and we will see if there is anything growing we will call her with results (3) Nonhealing nonsurgical wound with fat layer exposed: CODE(S): T14.8XXA - Other injury of unspecified body region, initial encounter
[2023-05-08 11:16] VITALS: BP 137/43; PULSE 71; RESP 18; TEMP 35.7; BMI 24.9
--- NOTE | 2023-05-08 11:26 | PN.PCM_ITS ---
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 Patient was rushed to the hospital and then apparently they were giving her Lovenox and her abdomen. And became necrotic and infected after she went home. She is try to get help but no one seems to know what to do with it. Finally she was referred to the wound center Progress of Wound: Wound is half the size it was last week still has a positive depth but no odor surrounding skin no erythema. Debrided only fibrin and some slough. We will continue with the same treatment plan for another week. 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 Micro: Microbiology 05/01/23 09:30 Wound - Abdominal Gram Stain - Final 05/01/23 09:30 Wound - Abdominal Wound Culture - Final Corynebacterium striatum 05/01/23 09:30 Wound - Abdominal Anaerobic Culture - Final No anaerobic bacteria isolated. Physical Exam Const oriented x3 General Appearance: cooperative Exam Limitations: no limitations HEENT normocephalic Head and Scalp: normal to inspection Face and Sinus: normal facial exam External Ear: external ears normal Eyes General Eye: normal appearance of both eyes Neck full ROM General: normal visual inspection Resp normal respiratory effort Effort and Inspection: able to speak in complete sentences Auscultation: clear to auscultation bilaterally Cardio regular rate and regular rhythm Palpation: normal PMI Rate: regular rate Rhythm: regular rhythm GI Negative for normal to inspection, nondistended, normoactive bowel sounds GI Narrative: Open wound right abdomen Inspection: other Other Details: Open wound on the right abdominal wall from injections into the abdomen around her umbilicus positive necrotic And slough in the base Auscultation: normoactive bowel sounds Palpation: soft and no hepatosplenomegaly Skin no rashes or lesions noted Wound Narrative: Open wound right abdomen from it looks like when she received Lovenox injections into her abdomen for her stroke. Psych Appearance: grossly normal Speech: normal speech Thought Content: normal thought content Judgement: judgement good Debridement Note Debridement Note Wound debrided: Right abdominal wound from infected injection site Type of Debridement: Excisional debridement Anesthesia Used: 5% Lidocaine Gel Depth: Down to and including healthy tissue Percentage of wound debrided: 100 Instrument Used: 3mm curette Tissue Removed: Slough Severity: Fat Layer Exposed Amount of bleeding with debridement: Mild Bleeding Controlled with: Compression and gauze Patient tolerated procedure: Patient tolerated procedure well Post-Debridement Measurements and Additional Note: Post-Debridement Measurements/Treatment - Nurse 1 - General Ulcer Assessment Start: 05/01/23 08:44 Freq: Status: Active Protocol: .HEIKE Activity Type Activity Date Activity User E-sign Co-sign Detail Recorded Client Recorded Date Recorded By Document 05/01/23 08:48 [facility] Desktop 05/01/23 08:59 [facility] Document 05/08/23 11:16 [id number] 05/08/23 11:17 05/01/23 05/08/23 08:48 11:16 - Today's Visit Information Type of service Initial Visit 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 ) Arrival Mode Ambulatory,Cane Ambulatory Transfer Assistance None None Accompanied by FIANCE Patient Identification Verified (Name & Yes Yes ) Patient Requires Transmission-Based No No Precautions Height and Weight Height 5 ft 4 in Weight 145 lb Weight in Pounds 145.0 lbs Body Mass Index (BMI) 24.9 24.9 BMI Classification Normal Normal BSA - Shira 1.71 Vital Signs Temperature (97.8 F-99.1 F) 98.4 F 96.3 F L Temperature Source Temporal Temporal Pulse Rate (60-100) 59 L 71 Pulse Location Monitor Monitor Respiratory Rate (12-18) 16 18 Respiratory rate source Observation Observation Oxygen Delivery Method Room Air Blood Pressure (90/60-120/80) 144/45 H 137/43 H Blood Pressure Mean (mm Hg) 78 74 Source Monitor Monitor Position Sitting Semi-Fowlers Blood Pressure Location Right Arm Left Arm History Since Last Visit- (Skip if this is Patient's initial visit) Have you changed medications since your No last visit? Any new allergies or adverse reactions No Had a fall/change in ADL's that may No increase risk of falls Signs or symptoms of abuse and/or No neglect since last visit Have you been in the hospital since your No last visit? Has dressing in place as prescribed Yes Has compression in place as prescribed No Has offloadiing in place as prescribed No Experienced any changes in pain level or No management Left Footwear Regular Shoe Right Footwear Regular Shoe Pain Scale: 0-10 Numeric Is Patient Pain Free? Yes Yes Communication Assessment Preferred language Korean Quality Control Chemist Required No Able to Read Yes Able to Write Yes Communication Tools None Right Hearing Abillity Normal Left Hearing Abillity Normal Visual Assistive Devices Glasses Teaching Assessment Preferences Verbal,Written, Audio/Visual, Demonstration Barriers to Learning None Readiness To Learn Excellent Willingness to Engage in Self Management High Activies Readiness to Engage in Self Management High Activities Anxiety Level Calm Cooperation Cooperative Perception Coherent Interest in Health Problem Asks Questions Education Importance Acknowledges Need Does Patient Smoke tobacco or other No substances Smoking Status Former smoker WC - Nurse 1 - General Ulcer Measurement Start: 05/01/23 08:44 Freq: Status: Active Protocol: Activity Type Activity Date Activity User E-sign Co-sign Detail Recorded Client Recorded Date Recorded By Document 05/01/23 08:48 [facility] Desktop 05/01/23 08:59 [facility] Document 05/08/23 11:16 [id number] 05/08/23 11:17 RB 05/01/23 05/08/23 08:48 11:16 Wound Center Nurse 1 #1- R ABDOMEN -Combined with other wound No No -Current Size (cm) - Length 0.8 0.4 -Current Size (cm) - Width 0.8 1.1 -Current Size (cm) - Depth 0.2 0.3 -Total Square Cm 0.64 0.44 -Date of Last Picture (Recall this 05/01/23 field) -Photo Taken Yes -Epithelialization None Present -Tunneling No No -Undermining/Tunneling No No -Circular Undermining No No -Exudate Amt Medium Medium -Exudate Type Serosanguineous Serosanguineous -Wound Margin Distinct, Distinct, Outline Outline Attached Attached -Granulation Amt None Present (0 Medium (34-66%) %) -Granulation Quality [place] -Slough/Fibrin Yes Yes -Necrosis Amt Large (67-100%) Medium (34-66%) -Necrotic Tissue Type Eschar Adherent Slough -Structure Exposed N/A -Texture (Marcia-wound Skin Appearance) Assessed, Assessed Scarring -Moisture (Marcia-wound Skin Appearance) Assessed Assessed -Color (Marcia-wound Skin Appearance) Assessed, Erythema Erythema -Temperature (Marcia-wound Skin No Abnormality No Abnormality Appearance) (Pt Warm) (Pt Warm) -Tenderness on Palpation (Marcia-wound No No Skin Appearance) -Ulcer Cleansing Rinsed/ Wound Cleanser Irrigated with Saline -Foul Odor after Cleansing No No -Anesthetic Used 5% Lidocaine 5% Lidocaine Gel Gel WC - Nurse 2 - General Ulcer CM Notes Start: 05/01/23 08:44 Freq: Status: Active Protocol: Activity Type Activity Date Activity User E-sign Co-sign Detail Recorded Client Recorded Date Recorded By Document 05/01/23 09:22 MW [id number] 05/01/23 09:31 MW 05/01/23 09:22 Wound Center Nurse 2 -Time 09:23 -Correct Patient Yes -Correct Side, Site, Position Yes -Correct Procedure Yes -Procedure Performed Yes -Type of Procedure Debridement -Clinical Debridement Subcutaneous -Tissue Removed Subcutaneous -Post Debridement (cm) - Length 1.5 -Post Debridement (cm) - Width 2.6 -Post Debridement (cm) - Depth 0.3 -Total Square (Post) (cm) 3.90 -Area of Debridement (cm) - Length 1.5 -Area of Debridement (cm) - Width 2.6 -Total Square (Area) (cm) 3.90 -Tunneling No -Undermining/Tunneling No -Circular Undermining No -Wound/Ulcer Outcome Not Healed -Ulcer Cleansing Rinsed/ Irrigated with Saline -Foul Odor after Cleansing No -Bioengineered Tissue No -Bleeding Controlled with Pressure -Treatment Response Procedure Tolerated Well -Offloading No -Debridement - Subq, 1st 20sq cm Yes Pain Scale: 0-10 Numeric Is Patient Pain Free? Yes MARTINEZ - Nurse 3 - General Ulcer D/C NN Start: 05/01/23 08:44 Freq: Status: Active Protocol: Activity Type Activity Date Activity User E-sign Co-sign Detail Recorded Client Recorded Date Recorded By Document 05/01/23 09:51 RB Desktop 05/01/23 09:53 RB 05/01/23 09:51 Wound Care Center Nurse 3 #1- R ABDOMEN -Ulcer Cleansing Rinsed/ Irrigated with Saline -Primary Dressing Applied Fibracol Plus 4x4,Mepilex Border -Other Dressing bactroban -Fibracol Plus 4x4 1 -Mepilex Border 1 Treatment Response Procedure Tolerated Well Pain Scale: 0-10 Numeric Is Patient Pain Free? Yes Teaching: Wound Center Dressing Your Wound -Person Taught Patient,Family -Teaching Method Discussion, Demonstration -Response to teaching Verbalize understanding WC - Visit Discharge Discharge Condition Stable Ambulatory Status Ambulatory,Cane Transportation Private Auto Medication Reconcilliation completed & No provided to patient/care provider Clinical Summary of Care Provided Yes Assessment/Plan Assessment/Plan (1) CVA (cerebral vascular accident): CODE(S): I63.9 - Cerebral infarction, unspecified QUALIFIERS: CVA mechanism: occlusion Precerebral and cerebral artery: carotid artery Laterality of affected vessel: bilateral Qualified Code(s): I63.233 - Cerebral infarction due to unspecified occlusion or stenosis of bilateral carotid arteries (2) Chronic abdominal wound infection: CODE(S): S31.109A - Unspecified open wound of abdominal wall, unspecified quadrant without penetration into peritoneal cavity, initial encounter; L08.9 - Local infection of the skin and subcutaneous tissue, unspecified QUALIFIERS: Encounter type: initial encounter Qualified Code(s): S31.109A - Unspecified open wound of abdominal wall, unspecified quadrant without penetration into peritoneal cavity, initial encounter; L08.9 - Local infection of the skin and subcutaneous tissue, unspecified PLAN: Wash abdomen with antibacterial soap such as Dial apply Bactroban nickel thickness to base then Fibracol Adaptic and gauze dressing over top daily We will have home health care that she already has start the dressing changes also Follow-up in 1 week Cultures obtained and were negative. (3) Nonhealing nonsurgical wound with fat layer exposed: CODE(S): T14.8XXA - Other injury of unspecified body region, initial encounter
== END 2023-05-09 23:59 | disposition home or self-care (01) ==
LOC: WC 11:15
PROVIDERS: Visit Provider Nurse Practitioner
DX: S31.109A Unspecified open wound of abdominal wall, unspecified quadrant without penetration into peritoneal cavity, initial encounter (principal); I96 Gangrene, not elsewhere classified; G20 Parkinson's disease; I48.0 Paroxysmal atrial fibrillation; T80.89XA Other complications following infusion, transfusion and therapeutic injection, initial encounter; E78.5 Hyperlipidemia, unspecified; I10 Essential (primary) hypertension; Z86.73 Personal history of transient ischemic attack (TIA), and cerebral infarction without residual deficits; Z87.891 Personal history of nicotine dependence; K21.9 Gastro-esophageal reflux disease without esophagitis; Z79.01 Long term (current) use of anticoagulants; Z79.899 Other long term (current) drug therapy
CPT/HCPCS: 11042; 87070; 87075; 87077; 87205; 99203; G0463